=== PATIENT | female | born 1945 | race Caucasian/White ===

== ENCOUNTER → 2019-05-14 | Outpatient (REF) | payer MEDICARE, MEDICAID ==
[~2019-05-14] MED LIST: /AUGM875TA OR; /GLIP10TAB PO; ACET-683 PO; ACET65TA; ASPI-255 PO; ASPI325T PO; ASPI81TA3 OR; BACT2CRE TOP; BACT800T5 PO; BAUSCH OU; CEPH250T PO; CLIN300C PO; COLA100C2 OR; COLA100C5 PO; COUM1TAB18 OR; COUMADIN; DICL13PA TD; DIGO0.12 PO; DIGO25TA OR; DONETAB6 PO; DRISDOL OR; DRISDOL PO; DULC10SU2 PR; FENO48TA2 PO; FERR325T OR; FERR325T3 PO; FIBECHW4 PO; FLON0.054; FOLI1TAB OR; FOLI1TAB11 PO; GLIP10TA6 PO; GLIP5TAB2 OR; GLUC1000 OR; GLUCOTROL PO; HALD5INJ2 IM; HALD5INJ2 PO; HYDR-2541 PO; HYDR25TA6 OR; IBUP800T; KEFL500C17 PO; KLON0.5T PO; KLOR1TAB77 PO; LEVO50TA4 PO; LISI-1046 PO; LOPR100T OR; LOPR1TAB6 PO; LOVA40TA PO; LUBRICANT EYE DROPS OU; METO1TAB63 PO; MEVA40TA OR; MEVACOR OR; MICRO K OR; NYST1POW9 TOP; NYSTPOW TOP; OMEP20TA7 PO; OMEP40CA2 PO; OMEPRAZOLE OR; POTA20TA OR; PRIL20CA9 PO; PRIN10TA PO; PROT1TAB2; PROZ20CA11 PO; SERT-141 PO; SYNT50TA PO; SYST1SOL OD; SYSTANE OU; TRAZ-252 PO; TRAZ50TA2 PO; TUMS500C; TYLE325T5 PO; TYLE500T53 OR; VICO5TAB; VICO5TAB PO; VICOBULK PO; VICODIN; VIT D PO; VITA10002 PO; VITA2000 PO; VITAMIN B 12 OR; VITAMIN D50000 UNT; VOLT1GEL15 TOP; VOLT1GEL2 TOP; ZOLO100T PO; ZOLO50TA PO; ZOLOFT PO; [UNRECOGNIZED DRUG - CODE]; [UNRECOGNIZED DRUG - OTHER]; [UNRECOGNIZED DRUG - OTHER] OU
== END ==
LOC: M LAB LCGH 10:16
PROVIDERS: ATTEND Surgery
DX: M79.81 Nontraumatic hematoma of soft tissue (principal)